=== PATIENT | male | born 1975 | race African-American/Black ===

== ENCOUNTER 2016-11-24 18:21 | Inpatient (IN) | payer OTHER ==
[~2016-11-24] VITALS: Ht 193 cm; Wt 74.9 kg
[~2016-11-24 18:21] MED LIST: FLEXERIL10 MG PO; GABAPENTIN300 MG PO; LIBRIUM25 MG PO; MOTRIN600 MG PO; PREDNISONE20 MG PO; ZITHROMAX Z-PA250 MG PO
[2016-11-24 19:48] LABS: HEMATOCRIT 45.4 % (38.0-50.0); MCH 32.4 PG (29.0-34.0); MCHC 34.4 G/DL (30.0-36.0); MCV 94.2 FL (86-99); MEAN PLAT.VOLUME 9.6 uM^3 (9.0-12.4); PLATELET COUNT 239 K/uL (156-360); RBC DIS.WIDTH-CV 13.4 % (11.8-14.6); RBC DIS.WIDTH-SD 44.7 % (39-53); RED BLOOD COUNT 4.82 M/uL (4.00-5.50)
[2016-11-24 19:55] LABS: ADD MIUA? NO; BILIRUBIN NEGATIVE; BLOOD NEGATIVE; COLOR YELLOW ((YELLOW)); GLUCOSE (STRIP) NEGATIVE; KETONES NEGATIVE; LEUKOCYTES NEGATIVE; NITRITE NEGATIVE; PROTEIN (STRIP) NEGATIVE; SPECIFIC GRAVITY 1.002 (1.000-1.030); UCUL ADDED? NO; UROBILINOGEN 0.2 MG/DL (0.2-1.0)
[2016-11-24 19:56] LABS: CHLORIDE 101 mEq/L (99-109); POTASSIUM 3.8 mEq/L (3.7-5.4); SODIUM 140 mEq/L (136-147)
[2016-11-24 19:58] LABS: GLUCOSE 89 mg/dL (70-99)
[2016-11-24 19:59] LABS: ANION GAP 17 MEQ/L (2-14)
[2016-11-24 20:00] LABS: TOTAL BILIRUBIN 1.4 mg/dL (0.0-1.0)
[2016-11-24 20:01] LABS: SERUM ETHYL ALCOHOL 420 mg/dL
[2016-11-24 20:02] LABS: GFR ESTIMATE (CALCULATED) > 59 mL/min/
[2016-11-24 20:03] LABS: ALKALINE PHOSPHATASE 79 IU/L (3-129)
[2016-11-24 20:04] LABS: UREA NITROGEN (BUN) 4 mg/dL (9-23)
[2016-11-24 20:04] LABS: AMPHETAMINE NEGATIVE (500 ng/mL); BARBITURATES NEGATIVE (200 ng/mL); BENZODIAZEPINES NEGATIVE (150 ng/mL); COCAINE NEGATIVE (150 ng/mL); METHADONE NEGATIVE (200 ng/mL); METHAMPHETAMINE NEGATIVE (500 ng/mL); OPIATES (MORPHINE) NEGATIVE (100 ng/mL); OXYCODONE NEGATIVE (100 ng/mL); PHENCYCLIDINE NEGATIVE (25 ng/mL); THC CANNABINOIDS NEGATIVE (50 ng/mL); TRICYCLIC ANTIDEPRESSANTS NEGATIVE (300 ng/mL)
[2016-11-24 20:05] LABS: SALICYLATE < 5.0 MG/DL (15-30)
[2016-11-24 20:05] LABS: INTERNAL CONTROLS VALID? YES; PROPOXYPHENE NEGATIVE (300 ng/mL)
[2016-11-25 11:02] VITALS: BP 129/83
[2016-11-25 15:59] VITALS: BP 144/86
[2016-11-26 07:32] VITALS: BP 135/77
[2016-11-26 15:51] VITALS: BP 140/95
[2016-11-27 08:01] VITALS: BP 159/77
[2016-11-27 16:11] VITALS: BP 124/58
[2016-11-28 07:58] VITALS: BP 128/79
[2016-11-28 16:16] VITALS: BP 131/81
[2016-11-29 07:53] VITALS: BP 132/69
[2016-11-29] MEDS ORDERED: MIRTAZAPINE30 MG PO (09:17)
[2016-11-29] MEDS ORDERED: KENALOG,ARISTOC80 GM TP (09:17)
[2016-11-29] MEDS ORDERED: LORATADINE10 M2 PO (09:17)
== END 2016-11-29 10:51 | disposition home or self-care (01) | DRG 885 ==
LOC: EME 18:21 → 1WEST 11-25 09:20 → EDOF 11-25 09:20 → 1WEST 11-25 10:33
PROVIDERS: Physician Assistant
DX: F33.9 Major depressive disorder, recurrent, unspecified (principal); L40.9 Psoriasis, unspecified; F10.20 Alcohol dependence, uncomplicated; R45.851 Suicidal ideations
CPT/HCPCS: 80053; 81003; 84443; 85027; 90839; 97150 GO; 97165 GO; 99281; 99285; G0480; J3411; J7030; Q0177